=== PATIENT | male | born 1945 | race Caucasian/White ===

== ENCOUNTER 2017-04-25 21:44 | Inpatient (IN) | payer OTHER ==
[~2017-04-25] VITALS: Ht 177.8 cm; Wt 87.3 kg
[~2017-04-25 21:44] MED LIST: ALDOMET500 MG PO; ASCORBIC ACID500 M3 PO; ASPIR-LOW81 MG PO; BUTALB-APAP-CA1 EACH PO; HYDROCHLOROTH12.5 M3 PO; HYGROTON25 MG PO; LO-DOSE ASPIRIN81 M1 PO; MEN'S MULTI-VI1 EACH PO; NORVASC10 MG PO; OMEPRAZOLE40 M1 PO; TIZANIDINE HCL4 MG PO
[2017-04-26 07:45] VITALS: BP 141/81
[2017-04-26 14:08] VITALS: BP 109/58
[2017-04-26 16:03] VITALS: BP 112/55
[2017-04-26 19:11] VITALS: BP 114/61
[2017-04-26 23:32] VITALS: BP 113/56
[2017-04-27 03:24] VITALS: BP 127/61
[2017-04-27 07:02] VITALS: BP 121/60
[2017-04-27 07:04] LABS: BASOPHIL (%) 0.3 % (0-1); EOSINOPHIL (%) 0.1 % (0-5); HEMATOCRIT 44.1 % (38.0-50.0); IMMATURE GRANULOCYTE (%) 0.4 % (0.0-0.7); LYMPHOCYTE COUNT 2.1 K/uL (1.0-2.8); MCH 29.7 PG (29.0-34.0); MCHC 33.8 G/DL (30.0-36.0); MCV 87.8 FL (86-99); MONOCYTE (%) 7.3 % (3-12); MONOCYTE COUNT 0.8 K/uL (0-0.8); NEUTROPHIL (%) 73.9 % (45-76); NEUTROPHIL COUNT 8.5 K/uL (1.8-6.4); PLATELET COUNT 253 K/uL (156-360); RBC DIS.WIDTH-CV 13.2 % (11.8-14.6); RBC DIS.WIDTH-SD 42.2 % (39-53); RED BLOOD COUNT 5.02 M/uL (4.00-5.50); WHITE BLOOD COUNT 11.4 K/uL (4.1-10.2)
[2017-04-27 07:17] LABS: HEMOGLOBIN 14.9 G/DL (12.5-16.6)
[2017-04-27 07:39] LABS: ALBUMIN 3.3 G/DL (3.2-4.8); ALKALINE PHOSPHATASE 42 IU/L (3-129); ALT (GPT) 12 IU/L (3-49); AST (GOT) 13 IU/L (2-34); CHLORIDE 105 MEQ/L (99-109); CREATININE 1.3 MG/DL (0.6-1.3); GFR ESTIMATE (CALCULATED) 58 mL/min/ (58.99-99999); GLUCOSE 89 mg/dL (70-99); PHOSPHORUS 2.8 mg/dL (2.5-4.9); POTASSIUM 3.6 MEQ/L (3.7-5.4); SODIUM 141 MEQ/L (136-147); TOTAL BILIRUBIN 0.6 MG/DL (0.0-1.0); TOTAL PROTEIN 5.3 G/DL (6.4-8.3); UREA NITROGEN (BUN) 13 mg/dL (9-23)
[2017-04-27 10:51] VITALS: BP 132/65
[2017-04-27 15:17] VITALS: BP 133/71
[2017-04-27 22:54] VITALS: BP 111/72
[2017-04-28 05:51] LABS: HEMATOCRIT 42.8 % (38.0-50.0); HEMOGLOBIN 14.3 G/DL (12.5-16.6); MCH 30.1 PG (29.0-34.0); MCHC 33.4 G/DL (30.0-36.0); MCV 90.1 FL (86-99); PLATELET COUNT 210 K/uL (156-360); RBC DIS.WIDTH-CV 13.4 % (11.8-14.6); RBC DIS.WIDTH-SD 44.5 % (39-53); RED BLOOD COUNT 4.75 M/uL (4.00-5.50); WHITE BLOOD COUNT 6.8 K/uL (4.1-10.2)
[2017-04-28 06:21] LABS: CHLORIDE 104 MEQ/L (99-109); POTASSIUM 3.7 MEQ/L (3.7-5.4); SODIUM 138 MEQ/L (136-147)
[2017-04-28 06:27] LABS: CREATININE 1.2 MG/DL (0.6-1.3); GFR ESTIMATE (CALCULATED) > 59 mL/min/ (58.99-99999); GLUCOSE 105 mg/dL (70-99); UREA NITROGEN (BUN) 10 mg/dL (9-23)
[2017-04-28 06:57] VITALS: BP 108/75
[2017-04-28 14:31] VITALS: BP 132/80
[2017-04-28 18:04] LABS: HEMATOCRIT 48.7 % (38.0-50.0); HEMOGLOBIN 16.5 G/DL (12.5-16.6); MCH 30.1 PG (29.0-34.0); MCHC 33.9 G/DL (30.0-36.0); MCV 88.7 FL (86-99); PLATELET COUNT 258 K/uL (156-360); RBC DIS.WIDTH-CV 13.2 % (11.8-14.6); RBC DIS.WIDTH-SD 43.1 % (39-53); RED BLOOD COUNT 5.49 M/uL (4.00-5.50); WHITE BLOOD COUNT 8.6 K/uL (4.1-10.2)
[2017-04-28 18:11] LABS: INTER. NORMALIZED RATIO 1.1
[2017-04-28 18:13] LABS: PTT 32.1 SEC (25-37)
[2017-04-28 23:03] VITALS: BP 124/72
[2017-04-29 06:47] VITALS: BP 134/78
[2017-04-29 06:53] LABS: HEMATOCRIT 45.6 % (38.0-50.0); HEMOGLOBIN 15.4 G/DL (12.5-16.6); MCH 30.1 PG (29.0-34.0); MCHC 33.8 G/DL (30.0-36.0); MCV 89.2 FL (86-99); PLATELET COUNT 228 K/uL (156-360); RBC DIS.WIDTH-CV 13.2 % (11.8-14.6); RBC DIS.WIDTH-SD 43.4 % (39-53); RED BLOOD COUNT 5.11 M/uL (4.00-5.50); WHITE BLOOD COUNT 7.2 K/uL (4.1-10.2)
[2017-04-29 15:00] VITALS: BP 136/79
[2017-04-29 23:33] VITALS: BP 114/60; BP 127/76
[2017-04-30 06:40] LABS: HEMATOCRIT 44.2 % (38.0-50.0); HEMOGLOBIN 15.2 G/DL (12.5-16.6); MCH 30.5 PG (29.0-34.0); MCHC 34.4 G/DL (30.0-36.0); MCV 88.8 FL (86-99); PLATELET COUNT 230 K/uL (156-360); RBC DIS.WIDTH-CV 13.2 % (11.8-14.6); RBC DIS.WIDTH-SD 43.1 % (39-53); RED BLOOD COUNT 4.98 M/uL (4.00-5.50); WHITE BLOOD COUNT 7.8 K/uL (4.1-10.2)
[2017-04-30 07:47] VITALS: BP 130/65
[2017-04-30] MEDS ORDERED: OXYCODONE-APAP1 EACH PO (12:43)
[2017-04-30] MEDS ORDERED: COLACE100 MG PO (12:43)
== END 2017-04-30 13:25 | disposition home or self-care (01) | DRG 330 ==
LOC: ENRESERV 21:44 → 2SOUTH 04-26 06:27 → ENRESERV 04-26 12:13 → 2SOUTH 04-26 13:49 → 5EAST 04-26 13:57 → ENPENDDIS 04-30 → 5EAST 04-30 13:25
PROVIDERS: Physician Assistant Surgical; Surgery
PROC: 0DTF0ZZ Resection of Right Large Intestine, Open Approach (ICD-10-PCS; principal; 2017-04-26)
DX: D12.0 Benign neoplasm of cecum (principal); K92.2 Gastrointestinal hemorrhage, unspecified; I10 Essential (primary) hypertension; K21.9 Gastro-esophageal reflux disease without esophagitis; K44.9 Diaphragmatic hernia without obstruction or gangrene; M54.5 Low back pain; Z79.82 Long term (current) use of aspirin
CPT/HCPCS: 80048; 80053; 83735; 84100; 85025; 85027; 85610; 85730; 88309; J0330; J1100; J1170; J1650; J2001; J2250; J2405; J2710; J2795; J3010; J3475; J7030; J7120; S0074

== ENCOUNTER 2017-06-03 02:16 | Inpatient (IN) | payer OTHER ==
[~2017-06-03] VITALS: Ht 177.8 cm; Wt 79.6 kg
[~2017-06-03 02:16] MED LIST changes: +COLACE100 MG PO; +OXYCODONE-APAP1 EACH PO
[2017-06-03 03:25] LABS: HEMATOCRIT 37.3 % (38.0-50.0); HEMOGLOBIN 13.3 G/DL (12.5-16.6); MCH 30.1 PG (29.0-34.0); MCHC 35.7 G/DL (30.0-36.0); MCV 84.4 FL (86-99); PLATELET COUNT 370 K/uL (156-360); RBC DIS.WIDTH-CV 12.9 % (11.8-14.6); RED BLOOD COUNT 4.42 M/uL (4.00-5.50)
[2017-06-03 03:44] LABS: INTER. NORMALIZED RATIO 1.2
[2017-06-03 03:46] LABS: ALBUMIN 2.6 g/dL (3.2-4.8); CHLORIDE 104 mEq/L (99-109); POTASSIUM 3.2 mEq/L (3.7-5.4); SODIUM 139 mEq/L (136-147)
[2017-06-03 03:49] LABS: GLUCOSE 80 mg/dL (70-99); TOTAL PROTEIN 4.4 g/dL (6.4-8.3)
[2017-06-03 03:50] LABS: TOTAL BILIRUBIN 0.6 mg/dL (0.0-1.0)
[2017-06-03 03:52] LABS: ALKALINE PHOSPHATASE 55 IU/L (3-129); CREATININE 1.2 mg/dL (0.6-1.3); GFR ESTIMATE (CALCULATED) > 59 mL/min/ (58.99-99999)
[2017-06-03 03:53] LABS: UREA NITROGEN (BUN) 26 mg/dL (9-23)
[2017-06-03 03:54] LABS: AST (GOT) 13 IU/L (2-34)
[2017-06-03 03:55] LABS: ALT (GPT) 12 IU/L (3-49)
[2017-06-03 03:56] LABS: LIPASE 16 U/L (1.0-51.0); TROP-I INTERPRETATION NEGATIVE; TROPONIN-I < 0.01 ng/mL (0.0-0.30)
[2017-06-03 05:34] LABS: APPEARANCE CLEAR ((CLEAR)); BILIRUBIN NEGATIVE; BLOOD NEGATIVE; COLOR YELLOW ((YELLOW)); GLUCOSE (STRIP) NEGATIVE; KETONES 20; LEUKOCYTES NEGATIVE; NITRITE NEGATIVE; PROTEIN (STRIP) NEGATIVE; SPECIFIC GRAVITY 1.027 (1.000-1.030); UCUL ADDED? NO; UROBILINOGEN 0.2 MG/DL (0.2-1.0)
[2017-06-03 06:31] VITALS: BP 128/67
[2017-06-03 16:54] VITALS: BP 131/67
[2017-06-03 20:21] VITALS: BP 134/67
[2017-06-03 23:42] VITALS: BP 129/71
[2017-06-04 04:06] VITALS: BP 126/64
[2017-06-04 08:43] VITALS: BP 142/78
[2017-06-04 11:54] VITALS: BP 128/66
[2017-06-04] MEDS ORDERED: HYDROCODON-ACE1 EAC7 PO (13:41)
[2017-06-04 16:20] VITALS: BP 132/74
[2017-06-04 20:21] VITALS: BP 131/70
[2017-06-05] VITALS (7 sets, daily range): BP systolic 112–130; BP diastolic 66–73
[2017-06-06 04:23] VITALS: BP 106/62
[2017-06-06 08:29] VITALS: BP 116/71
[2017-06-06] MEDS ORDERED: VANCOCIN HCL125 MG PO (11:10)
[2017-06-06] MEDS ORDERED: FLAGYL500 MG PO (11:10)
== END 2017-06-06 13:36 | disposition home or self-care (01) | DRG 373 ==
LOC: EME → EDBD 02:16 → EME 02:16 → EDOF 05:21 → 3EAST 05:21 → ENRESERV 05:22 → 3EAST 06:15
PROVIDERS: Emergency Medicine
DX: A04.72 Enterocolitis due to Clostridium difficile, not specified as recurrent (principal); Z90.49 Acquired absence of other specified parts of digestive tract; I10 Essential (primary) hypertension; K21.9 Gastro-esophageal reflux disease without esophagitis; Z79.899 Other long term (current) drug therapy; Z79.82 Long term (current) use of aspirin
CPT/HCPCS: 71045; 74177; 80053; 81003; 83605; 83690; 83880; 84484; 85027; 85610; 85730; 87040; 87493; 93005; 99281; 99285; J3480; J7030; J7050; J7120; S0030